=== PATIENT | male | born 1975 | race Caucasian/White ===

== ENCOUNTER 2017-12-28 08:01 | Emergency (ER) | payer BC ==
[2017-12-28 08:42] VITALS: BP 141/88
--- NOTE | 2017-12-28 08:57 | UC ---
Respiratory Complaint HPI - HPI Summary HPI Summary: has been sick for 7 days, has has fever 100 F all week, very fatigued. saw PCP 4 days ago for fever and headache, had labs drawn-neg , did not have Flu test. had flu vacc approx 2 weeks ago, yesterday new symps started with cough, chest dann and nasal d/c - History of Current Complaint Chief Complaint: UCGeneralIllness Stated Complaint: FLU SYMPTOMS Time Seen by Provider: 12/28/17 08:36 Hx Obtained From: Patient Onset/Duration: Gradual Onset Timing: Constant Severity Initially: Mild Severity Currently: Moderate Pain Intensity: 7 Character: Cough: Nonproductive Aggravating Factors: Deep Breaths Alleviating Factors: Nothing Associated Signs And Symptoms: Positive: Fever, Nasal Congestion - Allergies/Home Medications Allergies/Adverse Reactions: Allergies Allergy/AdvReac Type Severity Reaction Status Date / Time No Known Allergies Allergy Verified 12/28/17 08:34 Home Medications: Home Medications Guaifenesin/Dextromethorphan [Robitussin Cough-Chest Dm Liq] 12/28/17 [History] Naproxen Sodium [Aleve] 220 mg PO 12/28/17 [History] PMH/Surg Hx/FS Hx/Imm Hx Previously Healthy: Yes - Surgical History Surgical History: None - Family History Known Family History: Positive: None Negative: Hypertension, Diabetes - Social History 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 Negative: Shortness Of Breath Cardiovascular: Positive: Negative Gastrointestinal: Positive: Negative Neurological: Positive: Negative Psychological: Positive: Negative Is Patient Immunocompromised?: No Physical Exam Triage Information Reviewed: Yes Appearance: Well-Appearing, No Pain Distress, Well-Nourished Vital Signs: Initial Vital Signs Temp 99.2 F 12/28/17 08:36 Pulse 92 12/28/17 08:36 Resp 18 12/28/17 08:36 BP 141/88 12/28/17 08:36 Pulse Ox 98 12/28/17 08:36 Vital Signs Reviewed: Yes Eye Exam: Normal ENT: Positive: Pharynx normal, Nasal congestion, TMs normal. Negative: Sinus tenderness Neck exam: Normal Neck: Positive: Supple, Nontender, No Lymphadenopathy Respiratory: Positive: Rhonchi. Negative: Wheezing Cardiovascular Exam: Normal Neurological Exam: Normal Neurological: Positive: Alert Psychological Exam: Normal Skin Exam: Normal Skin: Negative: Rashes UC Diagnostic Evaluation - Laboratory Pertinent Lab Values Are: WNL O2 Sat by Pulse Oximetry: 98 Diagnostic Studies Comment: negative influenza Respiratory Course/Dx - Differential Dx/Diagnosis Differential Diagnosis/HQI/PQRI: Bronchitis, Influenza, Lower Resp Infection, Sinusitis Provider Diagnoses: upper respiratory illness Discharge - Sign-Out/Discharge Documenting (check all that apply): Patient Departure All imaging exams completed and their final reports reviewed: No Studies - Discharge Plan Condition: Stable Disposition: HOME Prescriptions: Azithromyxin BREANA (NF) [Z-Breana (Zithromax) 250 mg tabs #6] 2 tab PO .TODAY, THEN 1 DAILY #6 tab Patient Education Materials: Upper Respiratory Infection (ED) Referrals: Judah Barriga MD [Primary Care Provider] - 2 Days (follow-up fpr recheck and recheck blood pressure) Additional Instructions: drink plenty of fluids start antibiotic as prescribed return if symptoms worsen - Billing Disposition and Condition Condition: STABLE Disposition: Home
== END 2017-12-28 09:30 | disposition home or self-care (01) ==
LOC: UCEAST 08:01
DX: J06.9 Acute upper respiratory infection, unspecified (principal)
CPT/HCPCS: 99202; G0463